=== PATIENT | female | born 1985 | race Caucasian/White ===

== ENCOUNTER → 2018-09-22 16:00 | Outpatient (CLI) | payer MEDICAID, SELFPAY ==
[2017-10-16 20:17] VITALS: BMI 47.7
[2018-09-28 16:07] LABS: HPV Reflexed? NOT INDICATED
== END ==
PROVIDERS: Visit Provider Obstetrics & Gynecology
DX: Z12.4 Encounter for screening for malignant neoplasm of cervix (principal)
CPT/HCPCS: 88175; G0145